=== PATIENT | female | born 1995 | race Caucasian/White ===

== ENCOUNTER 2023-12-17 22:38 | Emergency (ER) | payer MEDICAID, OTHER ==
[~2023-12-17] VITALS: Ht 162.6 cm; Wt 90.7 kg
[2023-12-17 22:48] VITALS: RESP 17; O2SAT 97
[2023-12-17] MEDS ORDERED: NACL 0.9% 1,000 ML IV ONE (23:00)
[2023-12-18 00:17] LABS: BASOPHILS % (AUTO) 0.4 % (0.0-2.0); EOSINOPHILS # (AUTO) 0.1 K/uL (0.0-0.4); EOSINOPHILS % (AUTO) 2.1 % (0.0-4.0); HEMATOCRIT 40.1 % (36-48); LYMPHOCYTES # (AUTO) 2.9 K/uL (1.0-5.5); LYMPHOCYTES % (AUTO) 45.6 % (20.5-51.5); MEAN CORPUSCULAR HEMOGLOBIN 34 pg (27-31); MEAN CORPUSCULAR HGB CONC 35 % (32-36); MEAN CORPUSCULAR VOLUME 96 fL (79.0-98.0); MONOCYTES # (AUTO) 0.5 K/uL (0.0-1.0); MONOCYTES % (AUTO) 7.9 % (1.7-9.3); NEUTROPHILS # (AUTO) 2.8 K/uL (1.8-7.7); PLATELET COUNT (AUTO) 303 K/uL (130-430); RED BLOOD CELL COUNT(AUTO) 4.18 MIL/uL (4.2-6.2); RED CELL DISTRIBUTION WIDTH 14.3 % (9.0-15.0); WHITE BLOOD COUNT (AUTO) 6.4 K/uL (4.8-10.8)
[2023-12-18 00:24] LABS: CALCIUM 8.5 mg/dL (8.4-11.0); CREATININE 0.83 mg/dL (0.55-1.30); POTASSIUM 3.9 mmol/L (3.5-5.1)
[2023-12-18 00:36] LABS: ALBUMIN 3.7 g/dL (3.4-4.8); BILIRUBIN,DIRECT 0.1 mg/dL (0.0-0.3); TOTAL BILIRUBIN 0.2 mg/dL (0.0-1.0); TOTAL PROTEIN, SERUM 7.2 g/dL (6.4-8.3)
[2023-12-18] MEDS ORDERED: ONDANSETRON HCL 4 MG/2 ML VIAL IVP ONE (02:30)
[2023-12-18] MEDS ORDERED: LORazepam 2 MG/ML VIAL IVP ONE (03:15)
[2023-12-18 03:40] VITALS: BP_SYST 139; PULSE 119; RESP 18; TEMP 97; O2SAT 97
== END 2023-12-18 03:40 | disposition home or self-care (01) ==
LOC: SED 22:38
DX: R41.82 Altered mental status, unspecified (principal); F10.129 Alcohol abuse with intoxication, unspecified; F15.129 Other stimulant abuse with intoxication, unspecified; Z79.899 Other long term (current) drug therapy; Y90.6 Blood alcohol level of 120-199 mg/100 ml
CPT/HCPCS: 99284; 96360; 80076; 80048; 83690; 85025; 36415; 96374; 96375; G0482; J7030; J2060; J2405

== ENCOUNTER 2024-01-31 20:35 | Emergency (ER) | payer OTHER ==
[~2024-01-31] VITALS: Ht 162.6 cm; Wt 92.1 kg
[2024-01-31 20:53] VITALS: BP_SYST 130; PULSE 105; RESP 20; TEMP 97.9; O2SAT 97
[2024-01-31] MEDS ORDERED: AMOX-423 PO (22:08)
[2024-01-31 22:30] VITALS: O2SAT 97
[2024-01-31] MEDS: DIPHTH,PERTUSS(ACELL),TET VAC 0.5 ML VIAL (Tdap) I.M. ONE (22:46)
[2024-01-31] MEDS: ACETAMINOPHEN 325 MG TABLET PO ONE (22:51)
[2024-02-01 01:01] VITALS: BP_SYST 115; PULSE 98; RESP 20; TEMP 98.3
== END 2024-01-31 23:30 | disposition home or self-care (01) ==
LOC: SED 20:35
DX: S61.251A Open bite of left index finger without damage to nail, initial encounter (principal); F17.200 Nicotine dependence, unspecified, uncomplicated; Z79.899 Other long term (current) drug therapy; W55.01XA Bitten by cat, initial encounter; Y93.89 Activity, other specified; Y92.89 Other specified places as the place of occurrence of the external cause; Y99.8 Other external cause status
CPT/HCPCS: 90715; 99283